=== PATIENT | female | born 1990 | race African-American/Black ===

== ENCOUNTER 2016-06-06 10:44 | Emergency (ER) | payer SELFPAY ==
[~2016-06-06] VITALS: Ht 149.9 cm; Wt 42.2 kg
[~2016-06-06 10:44] MED LIST: CIPR500T94 PO; HYDR-2666 PO; HYDR-971 PO; METR500T PO; ONDA4TAB10 SL; PRED20TA PO
[2016-06-06 10:58] VITALS: BP 148/85
--- NOTE | 2016-06-06 11:41 | PHYS DOC ---
Past Medical History Past Medical History: Asthma, STD, Other Additional Past Medical Histor: bacterial vaginosis 03/02,TMJ Past Surgical History: Other Additional Past Surgical Histo: hernia as a child Additional Information: 1 TO 2 PPD Alcohol Use: Occasionally Drug Use: None Adult General Chief Complaint Chief Complaint: EARACHE/EAR PAIN HPI HPI Patient is a 25 year old female presents emergency department stating that she has having left ear pain and left jaw pain. She states that she's been having this pain for the last 2 weeks. She states that she was seen at [facility] and was told to take Aleve [id number]. Patient states she's been doing this with no relief. Patient states that she normally does not have any hearing or pain on the left side of her face although she is having increased pain and discomfort. She denies any fever, chills she did state that she vomited yesterday and today. She denies any blood being in the emesis. She denies any abdominal pain or discomfort. Patient is unsure when her last menstrual cycle is. She states that she has irregular. Review of Systems Review of Systems Constitutional: Denies fever or chills [] Eyes: Denies change in visual acuity, redness, or eye pain [] HENT: Denies nasal congestion or sore throat. C/o left ear and jaw pain Respiratory: Denies cough or shortness of breath [] Cardiovascular: No additional information not addressed in HPI [] GI: Denies abdominal pain, nausea, vomiting, bloody stools or diarrhea [] : Denies dysuria or hematuria [] Musculoskeletal: Denies back pain or joint pain [] Integument: Denies rash or skin lesions [] Neurologic: Denies headache, focal weakness or sensory changes [] Current Medications Current Medications Current Medications Medications (Trade) Dose Ordered Sig/Noah Start Time Stop Time Status Last Admin Dose Admin Acetaminophen/ Hydrocodone Bitart (Lortab 5/325) 1 tab 1X ONCE 06/06/16 11:45 06/06/16 11:46 DC 06/06/16 12:14 1 TAB Allergies Allergies Allergies Coded Allergies Type Severity Reaction Last Updated Verified No Known Drug Allergies 04/22/13 No Physical Exam Physical Exam Constitutional: Well developed, well nourished, no acute distress, non-toxic appearance. [] HENT: Normocephalic, atraumatic, bilateral external ears normal, oropharynx moist, no oral exudates, nose normal. Bilateral tympanic membranes appear to be normal. Patient does have tenderness along the TMJ area on the left side. She has decreased ability to open her mouth. Eyes: PERRLA, EOMI, conjunctiva normal, no discharge. [] Neck: Normal range of motion, no tenderness, supple, no stridor. [] Cardiovascular:Heart rate regular rhythm, no murmur [] Lungs & Thorax: Bilateral breath sounds clear to auscultation [] Skin: Warm, dry, no erythema, no rash. [] Back: No tenderness Extremities: No tenderness, no cyanosis, no clubbing, ROM intact, no edema. [] Neurologic: Alert and oriented X 3, normal motor function, normal sensory function, no focal deficits noted. [] Psychologic: Affect normal, judgement normal, mood normal. [] Current Patient Data Vital Signs Vital Signs Date Time Temp Pulse Resp B/P Pulse Ox O2 Delivery O2 Flow Rate FiO2 06/06/16 12:14 18 100 Room Air 06/06/16 10:58 97.7 95 148/85 97.7 Lab Values Laboratory Tests Test 06/06/16 11:14 POC Urine HCG, Qualitative Hcg negative (Negative) EKG EKG [] Radiology/Procedures Radiology/Procedures [] Course & Med Decision Making Course & Med Decision Making Pertinent Labs and Imaging studies reviewed. (See chart for details) Patient does state that she has suicidal ideation although she does state that it's related to the pain. Patient does have a history of suicidal ideations as a teenager. PAT called to evaluate patient. Marino with the pat team was here to evaluate patient. Patient denies any suicidal ideation at this time. She will be discharged home with hydrocodone and Flexeril to help with pain and discomfort. She'll continue with Aleve at home. Recommended that she follow up with a dentist. Also recommended that she could use mouthguard [id number] to see if that will help with the pain and discomfort. Signs and symptoms to return back to emergency department been provided. Patient will be discharged home in stable condition [] Dragon Disclaimer Dragon Disclaimer This electronic medical record was generated, in whole or in part, using a voice recognition dictation system. Departure Departure Impression: Primary Impression: TMJ (temporomandibular joint disorder) Additional Impression: Anxiety Disposition: 01 HOME, SELF-CARE Condition: STABLE Referrals: NO PCP (PCP) Patient Instructions: Anxiety and Panic Attacks, [id number], Temporomandibular Joint Pain-Brief Additional Instructions: Activity as tolerated. Medications as prescribed. Flexeril and hydrocodone both will cause drowsiness do not take any be alert and oriented. Continue with Aleve at home. You may purchase a mouthguard at [facility] for [facility]. This will help with the jaw pain. Follow-up through primary care physician next week. Follow-up with Zelda within the next week as well. Return back to emergency prior signs symptoms of become worse. Scripts Hydrocodone/Apap 5-325 ([place] 5-325 Tablet)1 Each Tablet1 Tab PO PRN Q6HRS PRN PAIN #5 TAB Prov:STAS ROBERTSON APRN 06/06/16 Cyclobenzaprine Hcl 10 Mg [id number] Mg PO TID #15 TAB Prov:SATS ROBERTSON APRN 06/06/16 Problem Qualifiers STAS ROBERTSON APRN Jun 06, 2016 11:41
[2016-06-06] MEDS ORDERED: HYDROCODONE/APAP 5/325MG TABLET. PO ONE (11:45)
[2016-06-06] MEDS ORDERED: CYCL10TA2 PO (12:26)
[2016-06-06] MEDS ORDERED: HYDR-971 PO (12:26)
== END 2016-06-06 12:42 | disposition home or self-care (01) ==
LOC: ER 10:44
DX: M26.602 Left temporomandibular joint disorder, unspecified (principal); F41.9 Anxiety disorder, unspecified; R45.851 Suicidal ideations; J45.909 Unspecified asthma, uncomplicated; F17.200 Nicotine dependence, unspecified, uncomplicated
CPT/HCPCS: 81025; 99284

== ENCOUNTER 2016-08-26 17:38 | Emergency (ER) | payer SELFPAY ==
[~2016-08-26] VITALS: Ht 149.9 cm; Wt 44.5 kg
[~2016-08-26 17:38] MED LIST changes: +CYCL10TA2 PO; -HYDR-2666 PO; +HYDR-2758 PO
[2016-08-26 18:49] LABS: BILIRUBIN,URINE NEGATIVE (NEG); GLUCOSE,URINE NEGATIVE (NEG); NITRITE,URINE NEGATIVE (NEG); PROTEIN,URINE 30 mg/dL (NEG-TRACE); UROBILINOGEN,URINE 0.2 mg/dL (0.2 mg/dL)
[2016-08-26] MEDS ORDERED: IV NORMAL SALINE 1000ML BAG 1,000 ML IV SCH (19:00)
[2016-08-26 19:03] LABS: BACTERIA,URINE MOD /HPF (0-FEW); WBC,URINE >40 /HPF (0-4)
[2016-08-26 19:04] LABS: SQUAMOUS EPITHELIAL CELL,UR OCC /LPF
[2016-08-26 19:10] LABS: BASO # 0.1 x10^3/uL (0.0-0.2); BASO % 0 % (0-3); EOS % 0 % (0-3); HEMATOCRIT 40.2 % (36.0-47.0); HEMOGLOBIN 13.2 g/dL (12.0-15.5); LYMPH % 5 % (24-48); MEAN CORPUSCULAR HEMOGLOBIN 33 pg (25-35); MEAN CORPUSCULAR HGB CONC 33 g/dL (31-37); MEAN CORPUSCULAR VOLUME 100 fL (79-100); MONO % 4 % (0-9); NEUT % 91 % (31-73); PLATELET COUNT 403 x10^3/uL (140-400); RED BLOOD COUNT 4.01 x10^6/uL (3.50-5.40); RED CELL DISTRIBUTION WIDTH 16.8 % (11.5-14.5); WHITE BLOOD COUNT 20.2 x10^3/uL (4.0-11.0)
[2016-08-26] MEDS ORDERED: ONDANSETRON PF 4 MG/2 ML VIAL. ONE (19:29)
[2016-08-26 19:41] LABS: CALCIUM 11.6 mg/dL (8.5-10.1); CREATININE 0.8 mg/dL (0.6-1.0); GFR 106.6; POTASSIUM 4.1 mmol/L (3.5-5.1)
[2016-08-26] MEDS ORDERED: CONTRAST GIVEN MC PRN (19:45)
[2016-08-26] MEDS ORDERED: ONDANSETRON PF 4 MG/2 ML VIAL. IV ONE (19:45)
[2016-08-26] MEDS ORDERED: IOHEXOL 300 MG/ML 75 ML VIAL IV ONE (19:45)
[2016-08-26 19:47] LABS: ALBUMIN/GLOBULIN RATIO 0.9 (1.0-1.7); TOTAL BILIRUBIN 0.5 mg/dL (0.2-1.0); TOTAL PROTEIN 8.3 g/dL (6.4-8.2)
[2016-08-26 20:10] LABS: PLT ESTIMATE INCREASED (ADEQUATE); POLYCHROMASIA SLIGHT
[2016-08-26 20:11] LABS: OVALOCYTES OCC
--- NOTE | 2016-08-26 20:51 | RAD ---
CT ABDOMEN/PELVIS Indication: ABD PAIN WITH NAUSEA AND VOMITING
OMNI 300 75ML, NO PRIORS
Technique: Multiple contiguous axial images were obtained through the abdomen and pelvis after administration of intravenous iodinated contrast. Coronal and sagittal reformations were created. PQRS STATEMENT One or more of the following in the visualized dose reduction techniques were utilized for this study: 1. Automatic exposure control, 2. Adjustment of the mA and/or kV according to patient size, 3. Use of iterative reconstruction technique Comparison: None FINDINGS: The lung bases are clear. The heart size is normal. The liver is normal in size. There is a vague area of low-attenuation in the left lobe measures 2.2 cm in size. The gallbladder is not definitively identified. The pancreas, spleen, and adrenal glands are unremarkable. The left kidney demonstrates no hydronephrosis or mass. On the right however, there is moderate hydronephrosis with numerous staghorn calculi identified. The largest stone measures 1.8 x 0.9 cm. There is also a stone within the ureteropelvic junction that measures 6 mm in size. Urinary bladder is within normal limits. Bowel loops are normal in caliber. The appendix is not definitively identified but there is no pericecal micromastia suggest acute appendicitis. The bowel loops are nondistended. There is a small amount of free fluid in the cul-de-sac. There is a hypervascular lesion in the right adnexa which may represent a corpus luteum cyst. This measures 2.2 cm. No destructive osseous lesions. IMPRESSION: Moderate right hydronephrosis with numerous staghorn calculi and also a 6 mm calculus at the ureteropelvic junction which could be the cause of obstruction. Vague 2.2 cm lesion within the left lobe of the liver. This could represent hemangioma but could be further evaluated by MRI without and with contrast or ultrasound. Probable corpus luteum cyst on the right. Small amount of free pelvic fluid. Electronically signed by: Cm Pearson MD (08/26/2016 8:48 PM) [facility]
[2016-08-26 21:00] VITALS: BP 154/97
--- NOTE | 2016-08-26 21:13 | PHYS DOC ---
Past Medical History Past Medical History: Asthma, STD, Other Additional Past Medical Histor: bacterial vaginosis 03/02,TMJ Past Surgical History: Other Additional Past Surgical Histo: hernia as a child Alcohol Use: Heavy Additional Information: daily drinker Drug Use: None Adult General Chief Complaint Chief Complaint: ABDOMINAL PAIN HPI HPI 25-year-old female with a history of chronic abdominal pain status post multiple workups including MRI of the abdomen. Patient now presents to the emergency department complaining of abdominal pain typical for her. Gradual onset. The pain is right sided. It is not right lower uterine or pelvic pain. She denies vaginal discharge or bleeding. Denies possibility of . Normal bowel and bladder habits. Pain is not worse with movement. Review of Systems Review of Systems Constitutional: Denies fever or chills [] Eyes: Denies change in visual acuity, redness, or eye pain [] HENT: Denies nasal congestion or sore throat [] Respiratory: Denies cough or shortness of breath [] Cardiovascular: No additional information not addressed in HPI [] GI: Denies abdominal pain, nausea, vomiting, bloody stools or diarrhea [] : Denies dysuria or hematuria [] Musculoskeletal: Denies back pain or joint pain [] Integument: Denies rash or skin lesions [] Neurologic: Denies headache, focal weakness or sensory changes [] Endocrine: Denies polyuria or polydipsia [] Current Medications Current Medications Current Medications Medications (Trade) Dose Ordered Sig/Noah Start Time Stop Time Status Last Admin Dose Admin Info (Do NOT chart on this entry -- for MONITORING) 1 each PRN DAILY PRN 08/26/16 19:45 08/28/16 19:44 Iohexol (Omnipaque 300 Mg/ml) 75 ml 1X ONCE 08/26/16 19:45 08/26/16 19:46 DC 08/26/16 20:14 75 ML Ondansetron HCl (Zofran) 4 mg 1X ONCE 08/26/16 19:45 08/26/16 19:46 DC 08/26/16 19:35 4 MG Sodium Chloride 1,000 ml @ 1,000 mls/hr Q1H 08/26/16 19:00 08/26/16 19:59 DC 08/26/16 19:22 1,000 MLS/HR Allergies Allergies Allergies Coded Allergies Type Severity Reaction Last Updated Verified No Known Drug Allergies 04/22/13 No Physical Exam Physical Exam Well-appearing 25-year-old female no acute distress clear lungs. Rhythm mild right-sided upper abdominal tenderness no guarding or rebound. Nontender McBurney's point. No pelvic or suprapubic tenderness. No CVA tenderness. No guarding or rebound. Normal bowel sounds. No mass or megaly. Constitutional: Well developed, well nourished, no acute distress, non-toxic appearance. [] HENT: Normocephalic, atraumatic, bilateral external ears normal, oropharynx moist, no oral exudates, nose normal. [] Eyes: PERRLA, EOMI, conjunctiva normal, no discharge. [] Neck: Normal range of motion, no tenderness, supple, no stridor. [] Cardiovascular:Heart rate regular rhythm, no murmur [] Lungs & Thorax: Bilateral breath sounds clear to auscultation [] Abdomen: Bowel sounds normal, soft, as above no masses, no pulsatile masses. [] Skin: Warm, dry, no erythema, no rash. [] Back: No tenderness, no CVA tenderness. [] Extremities: No tenderness, no cyanosis, no clubbing, ROM intact, no edema. [] Neurologic: Alert and oriented X 3, normal motor function, normal sensory function, no focal deficits noted. [] Psychologic: Affect normal, judgement normal, mood normal. [] Current Patient Data Vital Signs Vital Signs Date Time Temp Pulse Resp B/P (MAP) Pulse Ox O2 Delivery O2 Flow Rate FiO2 08/26/16 20:00 97 16 151/115 (127) 97 08/26/16 18:30 Room Air 08/26/16 17:59 98.2 98.2 Lab Values Laboratory Tests Test 08/26/16 17:32 08/26/16 18:25 08/26/16 19:00 08/26/16 19:25 POC Urine HCG, Qualitative Hcg negative (Negative) Urine Color Yellow Urine Clarity Cloudy Urine pH 6.0 Urine Specific [place] 1.025 Urine Protein 30 mg/dL (NEG-TRACE) Urine Glucose (UA) Negative mg/dL (NEG) Urine Ketones (Stick) >=80 mg/dL (NEG) Urine Blood Moderate (NEG) Urine Nitrite Negative (NEG) Urine Bilirubin Negative (NEG) Urine Urobilinogen Dipstick 0.2 mg/dL (0.2 mg/dL) Urine Leukocyte Esterase Large (NEG) Urine RBC 3-5 /HPF (0-2) Urine WBC >40 /HPF (0-4) Urine Squamous Epithelial Cells Occ /LPF Urine Amorphous Sediment Present /HPF Urine Bacteria Mod /HPF (0-FEW) Urine Mucus Slight /LPF White Blood Count 20.2 x10^3/uL (4.0-11.0) H Red Blood Count 4.01 x10^6/uL (3.50-5.40) Hemoglobin 13.2 g/dL (12.0-15.5) Hematocrit 40.2 % (36.0-47.0) Mean Corpuscular Volume 100 fL (79-100) Mean Corpuscular Hemoglobin 33 pg (25-35) Mean Corpuscular Hemoglobin Concent 33 g/dL (31-37) Red Cell Distribution Width 16.8 % (11.5-14.5) H Platelet Count 403 x10^3/uL (140-400) H Neutrophils (%) (Auto) 91 % (31-73) H Lymphocytes (%) (Auto) 5 % (24-48) L Monocytes (%) (Auto) 4 % (0-9) Eosinophils (%) (Auto) 0 % (0-3) Basophils (%) (Auto) 0 % (0-3) Neutrophils # (Auto) 18.4 x10^3uL (1.8-7.7) H Lymphocytes # (Auto) 1.0 x10^3/uL (1.0-4.8) Monocytes # (Auto) 0.7 x10^3/uL (0.0-1.1) Eosinophils # (Auto) 0.0 x10^3/uL (0.0-0.7) Basophils # (Auto) 0.1 x10^3/uL (0.0-0.2) Segmented Neutrophils % 95 % (35-66) H Lymphocytes % 5 % (24-48) L Platelet Estimate Increased (ADEQUATE) Large Platelets Occ Giant Platelets Occ Polychromasia Slight Ovalocytes Occ Sodium Level 139 mmol/L (136-145) Potassium Level 4.1 mmol/L (3.5-5.1) Chloride Level 104 mmol/L (98-107) Carbon Dioxide Level 21 mmol/L (21-32) Anion Gap 14 (6-14) Blood Urea Nitrogen 9 mg/dL (7-20) Creatinine 0.8 mg/dL (0.6-1.0) Estimated GFR (Cockcroft-Gault) 106.6 BUN/Creatinine Ratio 11 (6-20) Glucose Level 89 mg/dL (70-99) Calcium Level 11.6 mg/dL (8.5-10.1) H Total Bilirubin 0.5 mg/dL (0.2-1.0) Aspartate Amino Transferase (AST) 11 U/L (15-37) L Alanine Aminotransferase (ALT) 13 U/L (14-59) L Alkaline Phosphatase 78 U/L (46-116) Total Protein 8.3 g/dL (6.4-8.2) H Albumin 4.0 g/dL (3.4-5.0) Albumin/Globulin Ratio 0.9 (1.0-1.7) L Lipase 81 U/L (73-393) Laboratory Tests 08/26/16 19:00 Laboratory Tests 08/26/16 19:25 EKG EKG [] Radiology/Procedures Radiology/Procedures [] Course & Med Decision Making Course & Med Decision Making Pertinent Labs and Imaging studies reviewed. (See chart for details) signs and symptoms consistent with exacerbation of chronic abdominal pain in a patient with extensive history thereof. Full workup pending including labs and CT. Vital signs are unremarkable. She is well-appearing. Nontender McBurney's point. No pelvic complaints. Care assumed by Dr. Lopez at 2100 to follow lab results as well as CT findings reevaluated and disposition patient. [] Dragon Disclaimer Dragon Disclaimer This electronic medical record was generated, in whole or in part, using a voice recognition dictation system. Departure Departure Impression: Primary Impression: Abdominal pain Referrals: NO PCP (PCP) CIRILO MELGAR MD Aug 26, 2016 21:13
[2016-08-26] MEDS ORDERED: SULF1TAB24 PO (21:48)
[2016-08-26] MEDS ORDERED: HYDR-2758 PO (22:06)
[2016-08-26] MEDS ORDERED: ONDA4TAB10 SL (22:06)
== END 2016-08-26 22:10 | disposition home or self-care (01) ==
LOC: ER 17:38
DX: R10.10 Upper abdominal pain, unspecified (principal); G89.29 Other chronic pain; J45.909 Unspecified asthma, uncomplicated; F10.10 Alcohol abuse, uncomplicated
CPT/HCPCS: 36415; 74177; 80053; 81001; 81025; 83690; 85007; 85027; 96361; 96374; 99285; J2405; J7030; Q9967

== ENCOUNTER 2019-02-05 18:41 | Emergency (ER) | payer OTHER ==
[~2019-02-05] VITALS: Ht 149.9 cm; Wt 43.5 kg
[~2019-02-05 18:41] MED LIST changes: -HYDR-2758 PO; +HYDR-2761 PO; +HYDR-3164 PO; -HYDR-971 PO; +SULF1TAB24 PO
[2019-02-05 18:52] VITALS: BP 119/78
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
[2019-02-05] MEDS ORDERED: ORPHENADRINE CITRATE 60 MG/2 ML VIAL. IM ONE (19:30)
[2019-02-05] MEDS ORDERED: HYDROcodone/APAP 5/325MG 1 TAB TABLET PO ONE (19:30)
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
[2019-02-05] MEDS ORDERED: IBUP-1007 PO (20:17)
[2019-02-05] MEDS ORDERED: ORPH100T PO (20:17)
[2019-02-05] MEDS ORDERED: HYDR-3164 PO (20:17)
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
== END 2019-02-05 20:39 | disposition home or self-care (01) ==
LOC: ER 18:41
DX: M25.512 Pain in left shoulder (principal); R51 Headache; M54.2 Cervicalgia; J45.909 Unspecified asthma, uncomplicated; F10.10 Alcohol abuse, uncomplicated; Z98.890 Other specified postprocedural states; V89.2XXA Person injured in unspecified motor-vehicle accident, traffic, initial encounter; Y93.89 Activity, other specified; Y92.89 Other specified places as the place of occurrence of the external cause; Y99.8 Other external cause status
CPT/HCPCS: 70450; 70486; 72125; 73030; 81025; 96372; 99284; J2360

== ENCOUNTER 2020-03-15 06:55 | Emergency (ER) | payer SELFPAY ==
[~2020-03-15] VITALS: Ht 149.9 cm; Wt 44.5 kg
[~2020-03-15 06:55] MED LIST changes: +IBUP-1007 PO; +ORPH100T PO
[2020-03-15 07:02] VITALS: BP 135/94
[2020-03-15] MEDS ORDERED: AMOX1TAB61 PO (07:02)
[2020-03-15] MEDS ORDERED: GABA-585 PO (07:02)
--- NOTE | 2020-03-15 07:03 | PHYS DOC ---
Past Medical History Past Medical History: Asthma, STD, Other Additional Past Medical Histor: bacterial vaginosis 03/02,TMJ Past Surgical History: Other Additional Past Surgical Histo: hernia as a child Smoking Status: Current Every Day Smoker Alcohol Use: Heavy Drug Use: None General Adult EDM: Chief Complaint: left facial and jaw pain HPI: HPI: This is a 29-year-old female presenting the emergency department today with left-sided TMJ pain. It is a throbbing aching pain that started 2 days ago. She is taken ibuprofen with some relief. It is nonradiating. She does not have a specific place in her tooth where it hurts but in general it hurts in her upper and lower jaw but initiates from the ear across the face. Review of systems: She denies nausea vomiting fevers chills. She denies neck pain nuchal rigidity cough. All other review of systems negative. ED course: 21-year-old female presenting with left-sided otalgia/TMJ/jaw pain. On evaluation the patient's left ear has erythema with fluid behind it. We will treat her for ear infection. Also we will give her gabapentin for a possible trigeminal neuralgia. We will have her follow-up with her PCP in 1 to 2 days. She is to return for any worsening concerns, fever, rash, difficulty breathing drooling or swelling. Heart Score: Risk Factors: Risk Factors: DM, Current or recent (<one month) smoker, HTN, HLP, family history of CAD, obesity. Risk Scores: Score 0 - 3: 2.5% MACE over next 6 weeks - Discharge Home Score 4 - 6: 20.3% MACE over next 6 weeks - Admit for Clinical Observation Score 7 - 10: 72.7% MACE over next 6 weeks - Early Invasive Strategies Allergies: Allergies: Allergies Coded Allergies Type Severity Reaction Last Updated Verified No Known Drug Allergies 04/22/13 No Physical Exam: PE: Constitutional: Well developed, well nourished, no acute distress, non-toxic appearance. [] HENT: Normocephalic, atraumatic, bilateral external ears normal, oropharynx moist, no oral exudates, nose normal. [] The patient's left tympanic membrane is erythematous with fluid behind the eardrum. The patient's teeth do not have o bvious cavities. There is pain with movement of the ear. There is no erythema overlying the mastoid process. Nontender mastoid. There is normal pharynx without exudates. Uvula midline. No swelling. She is swallowing her secretions without any difficulty. Eyes: PERRLA, EOMI, conjunctiva normal, no discharge. [] Neck: Normal range of motion, no tenderness, supple, no stridor. [] Cardiovascular:Heart rate regular rhythm, no murmur [] Lungs & Thorax: Bilateral breath sounds clear to auscultation [] Abdomen: Bowel sounds normal, soft, no tenderness, no masses, no pulsatile masses. [] Skin: Warm, dry, no erythema, no rash. [] Back: No tenderness, no CVA tenderness. [] Extremities: No tenderness, no cyanosis, no clubbing, ROM intact, no edema. [] Neurologic: Alert and oriented X 3, normal motor function, normal sensory function, no focal deficits noted. [] Psychologic: Affect normal, judgement normal, mood normal. [] EKG: EKG: [] Radiology/Procedures: Radiology/Procedures: [] Course & Med Decision Making: Course & Med Decision Making Pertinent Labs and Imaging studies reviewed. (See chart for details) [] Dragon Disclaimer: [employer] Disclaimer: This electronic medical record was generated, in whole or in part, using a voice recognition dictation system. Departure Departure Impression: Primary Impression: Otitis media of left ear Disposition: 01 DC HOME SELF CARE/HOMELESS Condition: STABLE Referrals: NO PCP (PCP) CIRILO LANGFORD MD Patient Instructions: Otitis Media, Adult Additional Instructions: EMERGENCY DEPARTMENT GENERAL DISCHARGE INSTRUCTIONS Follow-up with your primary physician in 1 to 2 days. Return to the emergency department if you have any new or concerning findings. Thank you for coming to [facility] Emergency Department (ED) today and trusting us with you care. We trust that you had a positive experience in our Emergency Department. If you wish to speak to the department management, you may call the Director at [phone]. YOUR FOLLOW UP INSTRUCTIONS ARE FOLLOWS: 1. Do you have a private Doctor? If you do not have a private doctor, please ask for a resource list of physicians or clinics that may be able to assist you with follow up care. 2. If a lab test or culture has been done and does not come back immediately, your results will be reviewed and you will be notified if you need a change in treatment. ADDITIONAL INSTRUCTIONS AND INFORMATION: 1. Your care today has been supervised by a physician who is specially trained in emergency care. Many problems require more than one evaluation for a complete diagnosis and treatment. We recommend that you schedule your follow up appointment as recommended to ensure complete treatment of you illness or injury. If you are unable to obtain follow up care and continue to have a problem, or if your condition worsens, we recommend that you return to the ED. 2. We are not able to safely determine your condition over the phone nor are we able to give sound medical advice over the phone. For these safety reasons, if you call for medical advice we will ask you to come to the ED for further evaluation. 3. If you have any questions regarding these discharge instructions please call the ED at [phone]. SAFETY INFORMATION: In the interest of safety, wellness, and injury prevention; we encourage you to wear your sealbelt, if you smoke; quite smoking, and we encourage family to use a protective helmet for bicycling and other sporting events that present an increased risk for head injury. IF YOUR SYMPTOMS WORSEN OR NEW SYMPTOMS DEVELOP, OR YOU HAVE CONCERNS ABOUT YOUR CONDITION; OR IF YOUR CONDITION WORSENS WHILE YOU ARE WAITING FOR YOUR FOLLOW UP APPOINTMENT; EITHER CONTACT YOUR PRIMARY CARE DOCTOR, THE PHYSICIAN WHOSE NAME AND NUMBER YOU WERE GIVEN, OR RETURN TO THE ED IMMEDIATELY. This condition should be evaluated by your primary care physician and any necessary consulting services for continued management within a few days (1-2) after discharge. Return to the emergency department if you have any new or concerning symptoms including but not limited to fever, chills, nausea, vomiting, intractable pain, any new rashes, chest pain, shortness of breath, uncontrolled bleeding, difficulty breathing, and/or vision loss. Scripts Gabapentin (GABAPENTIN ) 100 Mg Capsule 100 MG PO TID for NEUROGENIC PAIN for 5 Days, #15 CAP 0 Refills Prov: MICHELLE MCDANIEL MD 03/15/20 Amoxicillin/Potassium Clav (AUGMENTIN 875-125 TABLET) 1 Each Tablet 1 TAB PO BID for 10 Days, #20 TAB 0 Refills Prov: MICHELLE MCDANIEL MD 03/15/20 MICHELLE MCDANIEL MD Mar 15, 2020 07:03
== END 2020-03-15 07:10 | disposition home or self-care (01) ==
LOC: ER 06:55
DX: H66.92 Otitis media, unspecified, left ear (principal); J45.909 Unspecified asthma, uncomplicated; F17.200 Nicotine dependence, unspecified, uncomplicated; F10.20 Alcohol dependence, uncomplicated; Y90.9 Presence of alcohol in blood, level not specified
CPT/HCPCS: 99283